=== PATIENT | female | born 1995 | race Two or more races ===

== ENCOUNTER 2023-10-28 00:07 | Emergency (ER) | payer OTHER ==
[~2023-10-28] VITALS: Ht 165.1 cm; Wt 87.1 kg
[2023-10-28] MEDS ORDERED: PRENA1 CHEW TA1.4 MG PO (00:40)
[2023-10-28] MEDS ORDERED: ZYRTEC10 MG PO (02:58)
== END 2023-10-28 03:04 ==
LOC: ER 00:08
DX: R07.89 Other chest pain (principal); R06.7 Sneezing